=== PATIENT | female | born 1930 | race Caucasian/White ===

== ENCOUNTER 2016-11-26 21:50 | Inpatient (IN) | payer MEDICARE, BC ==
[2016-11-26] MEDS ORDERED: NITROGLYCERIN/D5W 50 MG/250 ML RTUINJ IV ONE (21:58)
--- NOTE | 2016-11-26 22:07 | ER Document Report ---
ED General - General Stated Complaint: TROUBLE BREATHING Notes: Patient is an 86-year-old female with past medical history of COPD, CHF, recent cardioversion of A. fib earlier today at [facility] who presents in severe respiratory distress. Apparently over the last 2 hours the patient began with increasingly worse dyspnea and was found to have a pulse ox of 70% upon EMS arrival. The patient is unable to provide any meaningful history at time of arrival secondary to her respiratory distress. TRAVEL OUTSIDE OF THE [place] IN LAST 30 DAYS: No - Related Data Allergies/Adverse Reactions: bupropion [From Wellbutrin] Allergy (Verified 11/26/16 23:08) codeine Allergy (Verified 11/26/16 23:08) Penicillins Allergy (Verified 11/26/16 23:08) Sulfa (Sulfonamide Antibiotics) Allergy (Verified 11/26/16 23:08) Past Medical History - General Information source: Emergency Med Personnel Cannot obtain history due to: Unstable vital signs - Social History Smoking Status: Never Smoker Frequency of alcohol use: None Drug Abuse: None Lives with: Spouse/Significant other Family History: Reviewed & Not Pertinent - Past Medical History Cardiac Medical History: Reports: Hx Congestive Heart Failure Pulmonary Medical History: Reports: Hx COPD Endocrine Medical History: Reports: Hx Diabetes Mellitus Type 2 Past Surgical History: Reports: Hx Cholecystectomy, Hx Hysterectomy, Hx Tonsillectomy Review of Systems - Review of Systems Notes: Constitutional: Negative for fever. HENT: Negative for sore throat. Eyes: Negative for visual changes. Cardiovascular: Negative for chest pain. Respiratory: Positive for shortness of breath. Gastrointestinal: Negative for abdominal pain, vomiting or diarrhea. Genitourinary: Negative for dysuria. Musculoskeletal: Negative for back pain. Skin: Negative for rash. Neurological: Negative for headaches, weakness or numbness. 10 point ROS negative except as marked above and in HPI. Physical Exam - Vital signs Vitals: Pulse Ox 90 L 11/26/16 21:54 Interpretation: Hypoxic, Tachypneic Notes: PHYSICAL EXAMINATION: GENERAL: Appears in moderate to severe respiratory distress. Ill in appearance. HEAD: Atraumatic, normocephalic. EYES: Pupils equal round and reactive to light, extraocular movements intact, sclera anicteric, conjunctiva are normal. ENT: nares patent, oropharynx clear without exudates. Moderately dry mucous membranes. NECK: Normal range of motion, supple without lymphadenopathy LUNGS: Diffuse rales in all lung rangel with diminished breath sounds bilaterally. HEART: Regular rate and rhythm 4/6 systolic ejection murmur ABDOMEN: Soft, nontender, normoactive bowel sounds. No guarding, no rebound. No masses appreciated. EXTREMITIES: 1+ pitting edema in the bilateral lower extremities is equal and symmetric. NEUROLOGICAL: No focal neurological deficits. Moves all extremities spontaneously and on command. PSYCH: Normal mood, normal affect. SKIN: Warm, Dry, normal turgor, no rashes or lesions noted. Course - Re-evaluation Re-evalutation: 11/26/16 22:03 Patient arrived in severe respiratory distress on BiPAP, symptoms consistent with flash pulmonary edema. Initial blood pressures were 203 systolic and 132 diastolic. Patient was immediately transitioned to BiPAP and titrated up to 80 % FiO2 to maintain saturations at 97-98%. An immediate bedside echocardiogram was performed given recent cardioversion today for A. fib and did not demonstrate any evidence of cardiac tamponade or Pericardial Effusion. Poor contractility throughout consistent with patient's history of chronic systolic failure. Likewise, patient did have a loud 4/6 systolic murmur which is apparently her baseline. Lung ultrasound showed diffuse pulmonary edema. Nitropaste had been applied by EMS and this was removed. I then administered 500 g push of nitroglycerin which took patient's blood pressure from 203 systolic to 155 systolic patient began to have a dramatic improvement of her symptoms. Lasix 40 mg Thursday been administered by EMS and patient only takes 20 mg oral daily no additional Lasix will be administered at this time. She will be continued on BiPAP. A stat portable chest x-ray, labs, and EKG will be obtained. Patient is critically ill this time and require frequent reassessments to evaluate for possible decompensation in the setting of her pulmonary cardiac history and severe rest or distress at time of arrival. 11/27/16 00:05 Patient has been able to be transitioned off the nitroglycerin drip and is now maintained her blood pressures into the 120s to 130s. She continues on BiPAP at 12 on 6 at 50% FiO2 maintaining oxygen saturations in the low 90s. Laboratories overall unremarkable, no troponin elevation although there is an elevation of pro BNP consistent with patient's presentation of flash pulmonary edema. Her venous gas is also consistent with a respiratory acidosis in the setting of CO2 retention when he to likely mixed picture of both pulmonary edema as well as a COPD exacerbation. Patient is also been given steroids and some nebulizers here although she does not have any significant wheezing on exam at this time. I discussed this patient with her hunting and fishing guide Dr. Wilcox who agrees the patient will require transfer to [facility]. They unfortunately do not have any ICU beds available at this time the patient will remain in the emergency department until the transfer can be completed tomorrow. I have ordered a prescription low dose of insulin for her mildly elevated glucose. I also ordered 2 g of magnesium be given over 20 minutes for possible COPD exacerbation in conjunction with her pulmonary edema. Accu-Cheks every 6 hours have been ordered. Will continue to reassess frequently over patient is no longer critically ill at this time 11/27/16 02:52 Patient has had a softening of her blood pressure despite discontinuation of nitroglycerin. Patient's current blood pressure is 162. A small fluid bolus has been administered as patient has not had urine output yet since she's been here in the emergency department. She was trialed off BiPAP for a short period of time but her dyspnea recurred and she has been restarted at this time. Will continue to reassess 11/27/16 03:42 After 250 mL bolus patient's blood pressure has normalized. She is resting quietly with even, unlabored breaths on BiPAP. Care transferred to - Vital Signs Vital signs: Temp Pulse Resp BP Pulse Ox 96 F L 22 H 97/51 L 97 11/26/16 22:08 11/27/16 02:30 11/27/16 02:30 11/27/16 02:30 - Laboratory Result Diagrams: 11/26/16 22:15 11/26/16 22:15 Laboratory results interpreted by me: 11/26/16 11/26/16 11/26/16 22:15 22:15 22:15 Hgb 11.7 L MCHC 31.4 L RDW 15.9 H Seg Neuts % (Manual) 89 H Lymphocytes % (Manual) 5 L Abs Neuts (Manual) 8.7 H VBG pH VBG pCO2 VBG HCO3 Carbon Dioxide 34 H Est GFR ( Amer) 50 L Est GFR (Non-Af Amer) 41 L Glucose 244 H POC Glucose Creatine Kinase 29 L NT-Pro-B Natriuret Pep 2010 H 11/26/16 11/27/16 11/27/16 22:55 00:26 00:27 Hgb MCHC RDW Seg Neuts % (Manual) Lymphocytes % (Manual) Abs Neuts (Manual) VBG pH 7.17 L* 7.22 L VBG pCO2 119.4 H* 92.1 H* VBG HCO3 42.6 H 36.5 H Carbon Dioxide Est GFR ( Amer) Est GFR (Non-Af Amer) Glucose POC Glucose 296 H Creatine Kinase NT-Pro-B Natriuret Pep - Diagnostic Test Radiology reviewed: Image reviewed, Reports reviewed Radiology results interpreted by me: 11/27/16 00:08 Chest x-ray: Ousmane and pulmonary edema - EKG Interpretation by Me Additional EKG results interpreted by me: 11/27/16 02:54 Normal sinus rhythm. Rate 76. No ST elevations or depressions. QTC 424. Critical Care Note - Critical Care Note Total time excluding time spent on procedures (mins): 55 Comments: Critical care time spent obtaining history from patient or surrogate, discussions with consultants, development of treatment plan with patient or surrogate, evaluation of patient's response to treatment, examination of patient , ordering and performing treatments and interventions, ordering and review of laboratory studies, re-evaluation of patient's condition, ordering and review of radiographic studies and review of old charts Discharge - Discharge Clinical Impression: Respiratory distress Condition: Fair Disposition: [facility]
[2016-11-26 22:34] LABS: HEMATOCRIT 37.2 % (36.0-47.0); HEMOGLOBIN 11.7 g/dL (12.0-15.5); HGB HCT DIFFERENCE -2.1; MEAN CORPUSCULAR HEMOGLOBIN 28.5 pg (27.0-33.4); MEAN CORPUSCULAR HGB CONC 31.4 g/dL (32.0-36.0); MEAN CORPUSCULAR VOLUME 91 fl (80-97); RED BLOOD COUNT 4.09 10^6/uL (3.72-5.28); RED CELL DISTRIBUTION WIDTH 15.9 % (11.5-14.0); WHITE BLOOD COUNT 9.8 10^3/uL (4.0-10.5)
[2016-11-26 22:39] LABS: PARTIAL THROMBOPLASTIN TIME 28.3 SEC (23.5-35.8); PROTHROMBIN TIME 14.6 SEC (11.4-15.4)
[2016-11-26 22:51] LABS: ALANINE AMINOTRANSFERASE 26 U/L (9-52); ALBUMIN 3.9 g/dL (3.5-5.0); ALKALINE PHOSPHATASE 39 U/L (38-126); ANION GAP 8 (5-19); ASPARTATE AMINO TRANSFERASE 24 U/L (14-36); BILIRUBIN,TOTAL 0.7 mg/dL (0.2-1.3); BLOOD UREA NITROGEN 20 mg/dL (7-20); CALCIUM 8.4 mg/dL (8.4-10.2); CARBON DIOXIDE 34 mmol/L (22-30); CHLORIDE 100 mmol/L (98-107); CREATINE KINASE 29 U/L (30-135); CREATININE RESULT 1.24 mg/dL (0.52-1.25); GLUCOSE 244 mg/dL (75-110); MAGNESIUM 1.7 mg/dL (1.6-2.3); POTASSIUM 4.3 mmol/L (3.6-5.0); SODIUM 141.9 mmol/L (137-145); TOTAL PROTEIN 6.4 g/dL (6.3-8.2)
[2016-11-26 22:53] LABS: BASOPHILS % (MANUAL) 0 % (0-2); EOSINOPHILS % (MANUAL) 1 % (0-6); LYMPHOCYTES % (MANUAL) 5 % (13-45); TOTAL CELLS COUNTED 100
[2016-11-26 22:54] LABS: ANISOCYTOSIS SLIGHT; TOXIC GRANULATION SLIGHT
[2016-11-26 23:03] LABS: CREATINE KINASE MB 0.74 ng/mL (<4.55); TROPONIN I 0.021 ng/mL
[2016-11-26 23:08] LABS: VENOUS BLOOD BASE EXCESS 10.2 mmol/L; VENOUS BLOOD HCO3 42.6 mmol/L (20-32)
[2016-11-26 23:10] LABS: VENOUS BLOOD PCO2 119.4 mmHg (35-63); VENOUS BLOOD PH 7.17 (7.30-7.42)
[2016-11-26] MEDS ORDERED: METHYLPREDNISOLONE INJ 125 MG/2 ML SDV IV ONE (23:12)
[2016-11-26] MEDS ORDERED: IPRATROPIUM/ALBUTEROL 0.5-2.5 MG/3 ML AMPUL NEB ONE ×2 (23:12→23:15)
[2016-11-26] MEDS ORDERED: METHYLPREDNISOLONE INJ 125 MG/2 ML SDV ONE (23:15)
[2016-11-27] MEDS ORDERED: INSULIN REG, HUMAN 100 UNIT/ML 3 ML VIAL (PYX) SUBCUT ONE ×2 (00:03→03:44)
[2016-11-27] MEDS: MAGNESIUM SULFATE/D5W 100 ML IV SCH ×2 (00:25→02:16)
[2016-11-27 00:35] LABS: VENOUS BLOOD BASE EXCESS 5.8 mmol/L; VENOUS BLOOD HCO3 36.5 mmol/L (20-32); VENOUS BLOOD PH 7.22 (7.30-7.42)
[2016-11-27 00:38] LABS: VENOUS BLOOD PCO2 92.1 mmHg (35-63)
--- NOTE | 2016-11-27 11:14 | EKG REPORT ---
SEVERITY:- ABNORMAL ECG - SINUS RHYTHM NONSPECIFIC INTRAVENTRICULAR CONDUCTION DELAY LEFT VENTRICULAR HYPERTROPHY : Confirmed by: Carlita Santiago 27-Nov-2016 11:12:57
[2016-11-27] MEDS ORDERED: IPRATROPIUM/ALBUTEROL 0.5-2.5 MG/3 ML AMPUL NEB ONE (12:15)
[2016-11-27] MEDS ORDERED: APIXABAN 2.5 MG TABLET PO ONE (12:15)
[2016-11-27] MEDS ORDERED: ACETAMINOPHEN 325 MG TABLET PO PRN (17:26)
[2016-11-27] MEDS ORDERED: ONDANSETRON HCL INJ/PF 4 MG/2 ML SDV IV PRN (17:26)
[2016-11-27] MEDS ORDERED: ONDANSETRON 4 MG TAB.RAPDIS PO PRN (17:26)
--- NOTE | 2016-11-27 17:26 | ER Document Report ---
Doctor's Note Notes: 11/27/16 17:27 The hospitalist from [place] called inquiring about the patient, after reviewing the visit from last night, the hospitalist asked if there was a reason the patient could not be admitted here and I could not disagree with her request. Dr. Anaya from the hospitalist service was consulted, and he came to see the patient and agreed that admission here would be the appropriate thing at this time.
[2016-11-27] MEDS ORDERED: DEXTROSE 50%-WATER 25 GM/50 ML DISP.SYRIN IV PRN ×2 (17:41)
[2016-11-27] MEDS ORDERED: LORAZEPAM INJ 2 MG/1 ML VIAL IV PRN (17:41)
[2016-11-27] MEDS ORDERED: GLUCAGON,HUMAN RECOMB 1 MG INJ IM PRN (17:41)
[2016-11-27] MEDS ORDERED: DEXTROSE 40% GEL 15 GM TUBE PO PRN ×2 (17:41)
[2016-11-27] MEDS ORDERED: INSULIN LISPRO 100 UNIT/ML 3 ML VIAL SUBCUT PRN (17:41)
[2016-11-27] MEDS ORDERED: FLUTICASONE/SALMETEROL DISKUS 250-50 MCG/DOSE IH SCH ×2 (17:45→22:00)
--- NOTE | 2016-11-27 17:58 | PDOC H&P ---
History of Present Illness Admission Date/PCP: 11/27/[address] Clement Villeda Patient complains of: Shortness of breath History of Present Illness: REYMUNDO BLAKE is a 86 year old female with a history of age fibrillation, coronary artery disease as well as congestive heart failure and COPD who presents to emergency room with shortness of breath. The patient yesterday was seen in [place] by her director risk and underwent cardioversion. Dr. Antonio is her director risk. I discussed the case with him and he reports that she was hypoxic at his office however she was not wearing her oxygen as she normally does. The patient went home and reports that her breathing was initially fine. The patient's breathing however did become worse and they got progressively worse and she eventually called the ambulance and was brought to the hospital. In route she was noted to have systolic blood pressures in the 200s. Patient was given nitroglycerin with decrease in her blood pressure. Patient also required BiPAP. The patient required BiPAP in the emergency room and they contacted the director risk in [place] who agreed to accept the patient in transfer. Unfortunately no beds were available and the patient could not be transferred. Because of that we have been contacted to admit this patient for further care. Patient reports that she has had wheezing and a nonproductive cough for the last several days also. She denies any fevers or chills. She has had orthopnea and PND but denies any lower extremity edema. She denies any chest pain associated with this. She denies any palpitations since being cardioverted. The patient is anticoagulated on Eliquis chronically. Patient clinically appears to have mostly COPD exacerbation with a component of congestive heart failure also. Past Medical History Cardiac Medical History: Reports: Atrial Fibrillation, Congestive Heart Failure , Coronary Artery Disease, Hyperlipidema, Hypertension, Peripheral Vascular Disease, Heart Murmur Pulmonary Medical History: Reports: Chronic Obstructive Pulmonary Disease (COPD) Endocrine Medical History: Reports: Diabetes Mellitus Type 2 Renal/ Medical History: Reports: None Malignancy Medical History: Reports: None GI Medical History: Reports: Gastroesophageal Reflux Disease Skin Medical History: Reports: None Psychiatric Medical History: Reports: Depression Infectious Medical History: Reports: None Past Surgical History Past Surgical History: Reports: Cholecystectomy, Hysterectomy, Tonsillectomy, Other - 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 Social History Information Source: Patient Lives with: Spouse/Significant other Smoking Status: Former Smoker Frequency of Alcohol Use: None Hx Recreational Drug Use: No Drugs: None Hx Prescription Drug Abuse: No - Advance Directive Resuscitation Status: Full Code Surrogate healthcare decision maker:: Her Family History Family History: Father at age 63 and had lung cancer. Mother at age 67 from ovarian cancer Parental Family History Reviewed: Yes Children Family History Reviewed: No Sibling(s) Family History Reviewed.: No Medication/Allergy Home Medications: Albuterol Sulfate [Albuterol Sulfate 2.5mg/3 mL] 1 vial IH Q4 PRN 11/27/16 Albuterol Sulfate [Proair HFA] 1 - 2 puff IH Q6 PRN 11/27/16 Amiodarone HCl [Amiodarone HCl 400 mg Tablet] 400 mg PO DAILY 11/27/16 Apixaban [Eliquis 2.5 mg Tablet] 2.5 mg PO DAILY 11/27/16 Ascorbic Acid [Vitamin C 500 mg Tablet] 500 mg PO DAILY 11/27/16 Aspirin [Aspirin 81 mg Chewable Tablet] 81 mg PO DAILY 11/27/16 Atorvastatin Calcium 40 mg PO DAILY 11/27/16 Bisoprolol Fumarate [Zebeta 5 mg Tablet] 1 tab PO DAILY 11/27/16 Brimonidine Tartrate [Alphagan P] 2 drop OP BID 11/27/16 Chondroitin Sulfate A Sodium [Chondroitin Sulfate] 150 gm MC DAILY 11/27/16 Escitalopram Oxalate 40 mg PO DAILY 11/27/16 Fluticasone/Salmeterol [Advair 250-50 Diskus 28 dose] 1 inh IH Q12H 11/27/16 Furosemide [Lasix] 20 mg PO DAILY 11/27/16 Gabapentin 100 mg PO DAILY 11/27/16 Indapamide [Indapamide] 2.5 mg PO DAILY 11/27/16 Insulin NPL/Insulin Lispro [Humalog Mix 75-25 100 unit/mL] 25 unit SUBCUT QAM Ipratropium [place] [Atrovent 0.06% Nasal Pax] 2 spray NASL BID 11/27/16 Isosorbide Mononitrate [Imdur 60 mg Tablet.er] 60 mg PO DAILY 11/27/16 Multivitamin/Iron/Folic Acid [Centrum Complete Multivit Tab] 1 each PO DAILY Pantoprazole Sodium 40 mg PO BID 11/27/16 Potassium Chloride 10 meq PO DAILY 11/27/16 Prednisone 10 mg PO DAILY 11/27/16 Ramipril [Altace 1.25 mg Capsule] 1.25 mg PO QHS 11/27/16 Terbinafine HCl 250 mg PO DAILY 11/27/16 Tiotropium [place] [Spiriva] 18 mcg IH DAILY 11/27/16 Travoprost (Benzalkonium) [Travatan 0.004% Eye Drop] 5 ml OP DAILY 11/27/16 Trazodone HCl 100 mg PO QHS 11/27/16 Allergies/Adverse Reactions: bupropion [From Wellbutrin] Allergy (Verified 11/26/16 23:08) codeine Allergy (Verified 11/26/16 23:08) Penicillins Allergy (Verified 11/26/16 23:08) Sulfa (Sulfonamide Antibiotics) Allergy (Verified 11/26/16 23:08) Review of Systems Constitutional: PRESENT: fatigue, weakness. ABSENT: chills, fever(s), headache( s), night sweats, weight gain, weight loss Eyes: ABSENT: visual disturbances Ears: ABSENT: hearing changes Nose, Mouth, and Throat: PRESENT: other - Left facial droop from parotid gland surgery Cardiovascular: PRESENT: dyspnea on exertion, orthropnea, palpitations. ABSENT : chest pain, edema Respiratory: PRESENT: cough, dyspnea. ABSENT: hemoptysis, sputum Gastrointestinal: ABSENT: abdominal pain, constipation, diarrhea, hematemesis, hematochezia, nausea, vomiting Genitourinary: ABSENT: dysuria, hematuria Musculoskeletal: ABSENT: joint swelling Integumentary: ABSENT: rash, wounds Neurological: ABSENT: abnormal gait, abnormal speech, confusion, dizziness, focal weakness, syncope Psychiatric: PRESENT: anxiety Endocrine: ABSENT: cold intolerance, heat intolerance, polydipsia, polyuria Hematologic/Lymphatic: ABSENT: easy bleeding, easy bruising Physical Exam Vital Signs: Temp Pulse Resp BP Pulse Ox 98 F 22 H 136/56 H 95 11/27/16 13:30 11/27/16 15:31 11/27/16 15:31 11/27/16 15:31 Intake & Output 11/26/16 11/27/16 11/28/16 06:59 06:59 06:59 Output Total 200 Balance -200 Weight 87.7 kg General appearance: PRESENT: mild distress Head exam: PRESENT: atraumatic, normocephalic Eye exam: PRESENT: conjunctiva pink, EOMI, PERRLA. ABSENT: scleral icterus Ear exam: PRESENT: normal external ear exam Mouth exam: PRESENT: moist, tongue midline Neck exam: ABSENT: carotid bruit, JVD, lymphadenopathy, thyromegaly Respiratory exam: PRESENT: wheezes - Patient has a few scattered expiratory wheezes. ABSENT: rales, rhonchi Cardiovascular exam: PRESENT: RRR, systolic murmur - 2/6 systolic murmur. ABSENT: diastolic murmur, rubs GI/Abdominal exam: PRESENT: normal bowel sounds, soft. ABSENT: distended, guarding, mass, organolmegaly, rebound, tenderness Rectal exam: PRESENT: deferred Extremities exam: ABSENT: calf tenderness, clubbing, pedal edema Neurological exam: PRESENT: alert, awake, oriented to person, oriented to place , oriented to time, oriented to situation, CN II-XII grossly intact. ABSENT: motor sensory deficit Psychiatric exam: PRESENT: anxious Skin exam: PRESENT: dry, intact, warm. ABSENT: cyanosis, rash Results Laboratory Results: 11/26/16 22:15 11/26/16 22:15 11/26/16 11/26/16 11/26/16 22:15 22:15 22:15 WBC 9.8 RBC 4.09 Hgb 11.7 L Hct 37.2 MCV 91 MCH 28.5 MCHC 31.4 L RDW 15.9 H Plt Count 241 Seg Neutrophils % Not Reportable Lymphocytes % Not Reportable Monocytes % Not Reportable Eosinophils % Not Reportable Basophils % Not Reportable Absolute Neutrophils Not Reportable Absolute Lymphocytes Not Reportable Absolute Monocytes Not Reportable Absolute Eosinophils Not Reportable Absolute Basophils Not Reportable VBG pH Cancelled VBG pCO2 Cancelled VBG HCO3 Cancelled VBG Base Excess Cancelled Sodium 141.9 Potassium 4.3 Chloride 100 Carbon Dioxide 34 H Anion Gap 8 BUN 20 Creatinine 1.24 Est GFR ( Amer) 50 L Est GFR (Non-Af Amer) 41 L Glucose 244 H Calcium 8.4 Magnesium 1.7 Total Bilirubin 0.7 AST 24 ALT 26 Alkaline Phosphatase 39 Total Protein 6.4 Albumin 3.9 11/26/16 11/27/16 22:55 00:27 WBC RBC Hgb Hct MCV MCH MCHC RDW Plt Count Seg Neutrophils % Lymphocytes % Monocytes % Eosinophils % Basophils % Absolute Neutrophils Absolute Lymphocytes Absolute Monocytes Absolute Eosinophils Absolute Basophils VBG pH 7.17 L* 7.22 L VBG pCO2 119.4 H* 92.1 H* VBG HCO3 42.6 H 36.5 H VBG Base Excess 10.2 5.8 Sodium Potassium Chloride Carbon Dioxide Anion Gap BUN Creatinine Est GFR ( Amer) Est GFR (Non-Af Amer) Glucose Calcium Magnesium Total Bilirubin AST ALT Alkaline Phosphatase Total Protein Albumin 11/26/16 11/26/16 22:15 22:15 Creatine Kinase 29 L CK-MB (CK-2) 0.74 Troponin I 0.021 NT-Pro-B Natriuret Pep 2010 H Impressions: Chest X-Ray 11/26/16 00:00 IMPRESSION: CARDIAC ENLARGEMENT. VASCULAR CONGESTION. BILATERAL PLEURAL EFFUSIONS WITH BASILAR ATELECTASIS. Assessment & Plan - Diagnosis (1) Respiratory distress Is this a current diagnosis for this admission?: YesPlan: Patient's respiratory distress is multifactorial including acute COPD exacerbation as well as acute on chronic congestive heart failure. (2) COPD with exacerbation Is this a current diagnosis for this admission?: YesPlan: Patient has restricted failure secondary to acute COPD exacerbation along with congestive heart failure most likely secondary to uncontrolled hypertension. We will give IV steroids, nebulizers as well as BiPAP as needed. (3) CHF (congestive heart failure) Is this a current diagnosis for this admission?: YesPlan: Patient's blood pressure was very elevated when she presented. She most likely has diastolic dysfunction. She is unaware of what her ejection fraction is. Her blood pressure is better controlled now and her congestive heart failure is improving. We'll give IV Lasix and monitor blood pressure closely. (4) Hypertension Is this a current diagnosis for this admission?: YesPlan: We'll give the IV Lasix. (5) Atrial fibrillation Is this a current diagnosis for this admission?: YesPlan: Patient had cardioversion yesterday done in [place]. She currently is in a sinus rhythm. She is anticoagulated on Eliquis and is on amiodarone for rate control. (6) Gastroesophageal reflux disease Is this a current diagnosis for this admission?: YesPlan: Asymptomatic (7) Diabetes mellitus Is this a current diagnosis for this admission?: YesPlan: We'll continue as scheduled 75/25 as well as sliding scale insulin. (8) Depression Is this a current diagnosis for this admission?: YesPlan: Patient has depression and anxiety. We'll give Ativan when necessary. (9) Hyperlipidemia Is this a current diagnosis for this admission?: Yes (10) Valvular heart disease Is this a current diagnosis for this admission?: YesPlan: Patient has a history of aortic stenosis, severe tricuspid regurgitation per her director risk Dr. Antonio (11) Peripheral vascular disease Is this a current diagnosis for this admission?: YesPlan: Patient has a history of having a right carotid endarterectomy in the past. (12) Coronary artery disease Is this a current diagnosis for this admission?: YesPlan: she reports that she had a stent placed greater than 20 years ago and had a history of an WA at that time. - Time Time Spent: 50 to 70 Minutes - Inpatient Certification Medical Necessity: Need Close Monitoring Due to Risk of Patient Decompensation - Plan Summary Plan Summary: We'll admit and give IV steroids for her COPD exacerbation as well as IV Lasix for her congestive heart failure exacerbation. This patient will require greater than 2 midnight hospital stay. The patient also requests to be a DO NOT RESUSCITATE.
[2016-11-27] MEDS ORDERED: IPRATROPIUM BROMIDE 0.06% NASAL SPRAY 15 ML NASL SCH (18:00)
[2016-11-27] MEDS ORDERED: INSULIN LISPRO SUBCUT SCH (18:00)
[2016-11-27] MEDS ORDERED: BRIMONIDINE TARTRATE OP SCH (18:00)
[2016-11-27] MEDS ORDERED: INSULIN LISPRO PROTAMINE SUBCUT SCH (18:00)
[2016-11-27] MEDS ORDERED: [UNRECOGNIZED DRUG - OTHER] SUBCUT SCH (18:00)
[2016-11-27 19:27] LABS: CREATINE KINASE MB 2.41 ng/mL (<4.55)
[2016-11-27 19:37] LABS: TROPONIN I 0.39 ng/mL
[2016-11-27] MEDS ORDERED: METHYLPREDNISOLONE INJ 40 MG/1 ML SDV IV SCH (22:00)
[2016-11-27] MEDS ORDERED: FUROSEMIDE INJ/PF 40 MG/4 ML SDV IV SCH (22:00)
[2016-11-27] MEDS ORDERED: RAMIPRIL 1.25 MG CAPSULE PO SCH (22:00)
[2016-11-27] MEDS ORDERED: TRAZODONE HCL 50 MG TABLET PO SCH (22:00)
[2016-11-27] MEDS ORDERED: LANSOPRAZOLE 30 MG TAB.RAP.DR PO SCH (22:00)
[2016-11-27] MEDS ORDERED: FAMOTIDINE 20 MG TABLET PO SCH (22:00)
[2016-11-27] MEDS: ALBUTEROL SULFATE 0.083% NEB 2.5 MG/3 ML AMPUL NEB PRN (22:41)
--- NOTE | 2016-11-27 22:44 | EKG REPORT ---
SEVERITY:- ABNORMAL ECG - SINUS RHYTHM NONSPECIFIC IVCD WITH LAD : Confirmed by: Madhavi Nieves MD 27-Nov-2016 22:43:18
[2016-11-27 22:57] VITALS: BP 123/44
--- NOTE | 2016-11-27 23:16 | PDOC TRANSFER SUMMARY ---
General Admission Date/PCP: 11/27/16 17:26 Accepting Facility: [facility] Resuscitation Status: Full Code - Transfer Diagnosis (1) Hypertensive emergency Is this a current diagnosis for this admission?: YesDiagnosis Summary: Patient presents the emergency room with severe shortness of breath and a systolic blood pressure of greater than 200 systolic the day after having cardioversion for atrial fibrillation. She receives BiPAP, IV nitroglycerin, IV Lasix and resumption of her home regiment with blood pressure control. Cardiac enzymes have trended upto o.3 without symptoms or EKG changes suggestive of troponin leak versus non-ST elevation DE. She is continued on Eliquis and aspirin and stable with a blood pressure of 123/44 pulse of 65 satting 98% on BiPAP. The patient has been accepted for transfer by Dr. Temple to [facility]. (2) CHF (congestive heart failure) Is this a current diagnosis for this admission?: YesDiagnosis Summary: Please see above (3) Coronary artery disease Is this a current diagnosis for this admission?: YesDiagnosis Summary: Please see above (4) Diabetes mellitus Is this a current diagnosis for this admission?: YesDiagnosis Summary: Home medication regiment with sliding scale insulin - Transfer Medications Home Medications: Albuterol Sulfate [Albuterol Sulfate 2.5mg/3 mL] 1 vial IH Q4 PRN 11/27/16 Albuterol Sulfate [Proair HFA] 1 - 2 puff IH Q6 PRN 11/27/16 Amiodarone HCl [Amiodarone HCl 400 mg Tablet] 400 mg PO DAILY 11/27/16 Apixaban [Eliquis 2.5 mg Tablet] 2.5 mg PO DAILY 11/27/16 Ascorbic Acid [Vitamin C 500 mg Tablet] 500 mg PO DAILY 11/27/16 Aspirin [Aspirin 81 mg Chewable Tablet] 81 mg PO DAILY 11/27/16 Atorvastatin Calcium 40 mg PO DAILY 11/27/16 Bisoprolol Fumarate [Zebeta 5 mg Tablet] 1 tab PO DAILY 11/27/16 Brimonidine Tartrate [Alphagan P] 2 drop OP BID 11/27/16 Chondroitin Sulfate A Sodium [Chondroitin Sulfate] 150 gm MC DAILY 11/27/16 Escitalopram Oxalate 40 mg PO DAILY 11/27/16 Fluticasone/Salmeterol [Advair 250-50 Diskus 28 dose] 1 inh IH Q12H 11/27/16 Furosemide [Lasix] 20 mg PO DAILY 11/27/16 Gabapentin 100 mg PO DAILY 11/27/16 Indapamide [Indapamide] 2.5 mg PO DAILY 11/27/16 Insulin NPL/Insulin Lispro [Humalog Mix 75-25 100 unit/mL] 25 unit SUBCUT QAM Ipratropium [place] [Atrovent 0.06% Nasal [place]] 2 spray NASL BID 11/27/16 Isosorbide Mononitrate [Imdur 60 mg Tablet.er] 60 mg PO DAILY 11/27/16 Multivitamin/Iron/Folic Acid [Centrum Complete Multivit Tab] 1 each PO DAILY Pantoprazole Sodium 40 mg PO BID 11/27/16 Potassium Chloride 10 meq PO DAILY 11/27/16 Prednisone 10 mg PO DAILY 11/27/16 Ramipril [Altace 1.25 mg Capsule] 1.25 mg PO QHS 11/27/16 Terbinafine HCl 250 mg PO DAILY 11/27/16 Tiotropium [place] [Spiriva] 18 mcg IH DAILY 11/27/16 Travoprost (Benzalkonium) [Travatan 0.004% Eye Drop] 5 ml OP DAILY 11/27/16 Trazodone HCl 100 mg PO QHS 11/27/16 Transfer Medications: Current Medications Acetaminophen (Tylenol 325 Mg Tablet) 650 mg PO Q4HP PRN PRN Reason: FOR PAIN OR TEMP Stop: 12/27/16 17:25 Albuterol (Ventolin 0.083% Neb 2.5 Mg/3 Ml Ampul) 2.5 mg NEB RTQ4HP PRN PRN Reason: FOR WHEEZING Stop: 12/27/16 17:25 Last Admin: 11/27/16 22:41 Dose: 2.5 mg Amiodarone HCl (Cordarone 200 Mg Tablet) 400 mg PO DAILY [place] Stop: 12/28/16 09:59 Apixaban (Eliquis 2.5 Mg Tablet) 2.5 mg PO DAILY [place] Stop: 12/28/16 09:59 Ascorbic Acid (Vitamin C 500 Mg Tablet) 500 mg PO DAILY [place] Stop: 12/28/16 09:59 Aspirin (Aspirin 81 Mg Chewable Tablet) 81 mg PO DAILY [place] Stop: 12/28/16 09:59 Atenolol (Tenormin 50 Mg Tablet) 50 mg PO DAILY [place] Stop: 12/28/16 09:59 Atorvastatin Calcium (Lipitor 40 Mg Tablet) 40 mg PO DAILY [place] Stop: 12/28/16 09:59 Dextrose (Dextrose Inj 50% Syringe (25 Gm/50 Ml)) 12.5 gm IV PRN PRN; Protocol PRN Reason: FOR BG 50-69 IN ALERT PATIENT Stop: 12/27/16 17:40 Dextrose (Dextrose Inj 50% Syringe (25 Gm/50 Ml)) 25 gm IV PRN PRN PRN Reason: Protocol Stop: 12/27/16 17:40 Escitalopram Oxalate (Lexapro 10 Mg Tablet) 40 mg PO DAILY [place] Stop: 12/28/16 09:59 Famotidine (Pepcid 20 Mg Tablet) 20 mg PO Q12 [place] Stop: 12/27/16 21:59 Furosemide (Lasix Inj/Pf 40 Mg/4 Ml Sdv) 40 mg IV Q12 [place] Stop: 12/27/16 21:59 Gabapentin (Neurontin 100 Mg Capsule) 100 mg PO DAILY [place] Stop: 12/28/16 09:59 Glucagon (Glucagen Inj 1 Mg Vial) 1 mg IM PRN PRN; Protocol PRN Reason: Evaluate for BG < 70 Stop: 12/27/16 17:40 Glucose (Glutose 40% Gel 15 Gm Tube) 15 gm PO PRN PRN; Protocol PRN Reason: FOR BG 50-69 IN ALERT PATIENT Stop: 12/27/16 17:40 Glucose (Glutose 40% Gel 15 Gm Tube) 30 gm PO PRN PRN; Protocol PRN Reason: FOR BG < 50 IN ALERT PATIENT Stop: 12/27/16 17:40 Insulin Human Lispro (Humalog Insulin 100 Unit/1 Ml 3 Ml Vial) 0 - 12 unit SUBCUT ACHSP PRN PRN Reason: Protocol Stop: 12/27/16 17:40 Ipratropium [place] (Atrovent 0.06% Nasal [place]) 2 spray NASL BID [facility] Stop: 12/27/16 17:59 Last Admin: 11/27/16 18:00 Dose: Not Given Isosorbide Mononitrate (Imdur 60 Mg Tablet.Er) 60 mg PO DAILY [place] Stop: 12/28/16 09:59 Lansoprazole (Prevacid 30 Mg Odt Tablet) 30 mg PO Q12 [place] Stop: 12/27/16 21:59 Lorazepam (Ativan Inj 2 Mg/1 Ml Vial) 0.5 mg IV Q8HP PRN PRN Reason: ANXIETY Stop: 12/04/16 17:40 Last Admin: 11/27/16 18:01 Dose: 0.5 mg Methylprednisolone Sodium Succinate (Solu-Medrol Inj/Pf 40 Mg/1 Ml Sdv) 40 mg IV Q8 [place] Stop: 12/27/16 21:59 Multivi/Iron Carb/Fe Sulf/FA/Prenat (-U Multiple Vitamin Capsule) 1 cap PO DAILY [place] Stop: 12/28/16 09:59 Ondansetron HCl (Zofran Odt 4 Mg Tablet) 4 mg PO Q4HP PRN PRN Reason: FOR NAUSEA/VOMITING Stop: 12/27/16 17:25 Ondansetron HCl (Zofran Inj/Pf 4 Mg/2 Ml Sdv) 4 mg IV Q8HP PRN PRN Reason: FOR NAUSEA/VOMITING Stop: 12/27/16 17:25 Patient Own Medication (Brimonidine Tartrate [Alphagan P]) 2 drop OP BID [place] Stop: 12/27/16 17:59 Patient Own Medication (Chondroitin Sulfate A Sodium [Chondroitin Sulfate]) 150 gm MC DAILY [place] Stop: 12/28/16 09:59 Patient Own Medication (Indapamide [Indapamide]) 2.5 mg PO DAILY [place] Stop: 12/28/16 09:59 Patient Own Medication (Insulin Npl/Insulin Lispro [Humalog Mix 75-25 100 Unit/ Ml]) 25 unit SUBCUT BID [place] Stop: 12/27/16 17:59 Patient Own Medication (Travoprost (Benzalkonium) [Travatan 0.004% Eye Drop]) 5 ml OP DAILY [place] Stop: 12/28/16 09:59 Potassium Chloride (Klor-Con 10 Meq Tablet.Sa) 10 meq PO DAILY [place] Stop: 12/28/16 09:59 Ramipril (Altace 1.25 Mg Capsule) 1.25 mg PO QHS [place] Stop: 12/27/16 21:59 Fluticasone/Salmeterol (Advair 250-50 Diskus 14 Dose/Diskus) 1 inh IH Q12 [place] Stop: 12/27/16 21:59 Terbinafine HCl (Lamisil 250 Mg Tablet) 250 mg PO DAILY [place] Stop: 12/05/16 09:59 Tiotropium [place] (Spiriva Handihaler 5 Cap/Kit (18 Mcg/Cap)) 1 cap IH DAILY [place] Stop: 12/28/16 09:59 Trazodone HCl (Desyrel 50 Mg Tablet) 100 mg PO QHS [place] Stop: 12/27/16 21:59 - Allergies Allergies/Adverse Reactions: bupropion [From Wellbutrin] Allergy (Verified 11/26/16 23:08) codeine Allergy (Verified 11/26/16 23:08) Penicillins Allergy (Verified 11/26/16 23:08) Sulfa (Sulfonamide Antibiotics) Allergy (Verified 11/26/16 23:08) Hospital Course Hospital Course: Patient presents the emergency room with severe shortness of breath and a systolic blood pressure of greater than 200 systolic the day after having cardioversion for atrial fibrillation. She receives BiPAP, IV nitroglycerin, IV Lasix and resumption of her home regiment with blood pressure control. Cardiac enzymes have trended upto o.3 without symptoms or EKG changes suggestive of troponin leak versus non-ST elevation DE. She is continued on Eliquis and aspirin and stable with a blood pressure of 123/44 pulse of 65 satting 98% on BiPAP. The patient has been accepted for transfer by Dr. Temple to [facility]. Physical Exam Vital Signs: Temp Pulse Resp BP Pulse Ox 97.8 F 67 23 H 123/44 L 98 11/27/16 22:53 11/27/16 22:53 11/27/16 22:53 11/27/16 22:53 11/27/16 22:53 Intake & Output 11/26/16 11/27/16 11/28/16 11:59 11:59 11:59 Weight 85.3 kg General appearance: PRESENT: no acute distress, well-developed, well-nourished Head exam: PRESENT: atraumatic, normocephalic Eye exam: PRESENT: conjunctiva pink, EOMI, PERRLA. ABSENT: scleral icterus Ear exam: PRESENT: normal external ear exam Mouth exam: PRESENT: moist, tongue midline Neck exam: ABSENT: carotid bruit, JVD, lymphadenopathy, thyromegaly Respiratory exam: PRESENT: crackles, prolonged expiratory phas, tachypnea, unlabored. ABSENT: rales, rhonchi, wheezes Cardiovascular exam: PRESENT: RRR. ABSENT: diastolic murmur, rubs, systolic murmur Pulses: PRESENT: normal dorsalis pedis pul GI/Abdominal exam: PRESENT: normal bowel sounds, soft. ABSENT: distended, guarding, mass, organolmegaly, rebound, tenderness Extremities exam: PRESENT: full ROM. ABSENT: calf tenderness, clubbing, pedal edema Neurological exam: PRESENT: alert, awake, oriented to person, oriented to place , oriented to time, oriented to situation, CN II-XII grossly intact. ABSENT: motor sensory deficit Psychiatric exam: PRESENT: appropriate affect, normal mood. ABSENT: homicidal ideation, suicidal ideation Skin exam: PRESENT: dry, intact, warm. ABSENT: cyanosis, rash Results Laboratory Results: 11/27/16 11/27/16 18:20 18:20 Creatine Kinase 48 CK-MB (CK-2) 2.41 Troponin I 0.390 Impressions: Chest X-Ray 11/26/16 00:00 IMPRESSION: CARDIAC ENLARGEMENT. VASCULAR CONGESTION. BILATERAL PLEURAL EFFUSIONS WITH BASILAR ATELECTASIS. Plan Discharge Plan: Patient has been accepted by Dr. Temple to [facility] pending bed availability and patient is currently stable for transfer Time Spent: Less than 30 Minutes
[2016-11-28 01:28] LABS: CREATINE KINASE MB 2.94 ng/mL (<4.55)
[2016-11-28 01:41] LABS: TROPONIN I 0.709 ng/mL
[2016-11-28] MEDS: ALBUTEROL SULFATE 0.083% NEB 2.5 MG/3 ML AMPUL NEB PRN (03:13)
[2016-11-28] MEDS ORDERED: ENOXAPARIN SODIUM INJ 40 MG/0.4 ML DISP.SYRIN SUBCUT SCH (08:00)
[2016-11-28] MEDS ORDERED: INDAPAMIDE 2.5 MG PO SCH (10:00)
[2016-11-28] MEDS ORDERED: TERBINAFINE HCL 250 MG TABLET PO SCH (10:00)
[2016-11-28] MEDS ORDERED: AMIODARONE HCL 200 MG TABLET PO SCH (10:00)
[2016-11-28] MEDS ORDERED: ATORVASTATIN CALCIUM 40 MG TABLET PO SCH (10:00)
[2016-11-28] MEDS ORDERED: ASPIRIN 81 MG TABLET, CHEWABLE PO SCH (10:00)
[2016-11-28] MEDS ORDERED: ISOSORBIDE MONONITRATE 60 MG TAB.ER.24H PO SCH (10:00)
[2016-11-28] MEDS ORDERED: TRAVOPROST OP SCH (10:00)
[2016-11-28] MEDS ORDERED: ATENOLOL 50 MG TABLET PO SCH (10:00)
[2016-11-28] MEDS ORDERED: APIXABAN 2.5 MG TABLET PO SCH (10:00)
[2016-11-28] MEDS ORDERED: CHONDROITIN SULFATE A SODIUM MC SCH (10:00)
[2016-11-28] MEDS ORDERED: GABAPENTIN 100 MG CAPSULE PO SCH (10:00)
[2016-11-28] MEDS ORDERED: ASCORBIC ACID 500 MG TABLET PO SCH (10:00)
[2016-11-28] MEDS ORDERED: ESCITALOPRAM OXALATE 10 MG TABLET PO SCH (10:00)
[2016-11-28] MEDS ORDERED: PRENATAL VITAMIN W-O CA NO5/FE FUMARATE/FA CAPSULE PO SCH (10:00)
[2016-11-28] MEDS ORDERED: POTASSIUM CHLORIDE 10 MEQ TABLET.SA PO SCH (10:00)
[2016-11-28] MEDS ORDERED: TIOTROPIUM BROMIDE DPI 5 CAP/KIT (18 MCG/CAP) IH SCH (10:00)
== END 2016-11-28 03:47 | disposition short-term general hospital (02) | DRG 304 ==
LOC: ER 21:50 → EH 11-27 17:26 → UNDOADMIN 11-27 18:25 → EH 11-27 18:25 → 3S 11-27 21:53
PROVIDERS: ADMIT Internal Medicine; ATTEND Internal Medicine
PROC: 5A09457 Assistance with Respiratory Ventilation, 24-96 Consecutive Hours, Continuous Positive Airway Pressure (ICD-10-PCS; principal; 2016-11-26)
PROC: 3E0F73Z Introduction of Anti-inflammatory into Respiratory Tract, Via Natural or Artificial Opening (ICD-10-PCS; 2016-11-27)
DX: I16.1 Hypertensive emergency (principal); I50.43 Acute on chronic combined systolic (congestive) and diastolic (congestive) heart failure; J44.1 Chronic obstructive pulmonary disease with (acute) exacerbation; I11.0 Hypertensive heart disease with heart failure; I25.10 Atherosclerotic heart disease of native coronary artery without angina pectoris; I48.91 Unspecified atrial fibrillation; E78.5 Hyperlipidemia, unspecified; R01.1 Cardiac murmur, unspecified; E11.51 Type 2 diabetes mellitus with diabetic peripheral angiopathy without gangrene; F32.9 Major depressive disorder, single episode, unspecified; F41.9 Anxiety disorder, unspecified; R29.810 Facial weakness; K21.9 Gastro-esophageal reflux disease without esophagitis; Z66 Do not resuscitate; Z79.899 Other long term (current) drug therapy; Z79.4 Long term (current) use of insulin; Z88.6 Allergy status to analgesic agent; Z88.0 Allergy status to penicillin; Z88.2 Allergy status to sulfonamides; Z88.8 Allergy status to other drugs, medicaments and biological substances; Z90.49 Acquired absence of other specified parts of digestive tract; Z90.710 Acquired absence of both cervix and uterus; Z87.891 Personal history of nicotine dependence; Z79.82 Long term (current) use of aspirin; Z79.52 Long term (current) use of systemic steroids; Z80.1 Family history of malignant neoplasm of trachea, bronchus and lung; Z80.41 Family history of malignant neoplasm of ovary
CPT/HCPCS: 36415; 51701; 71010; 80053; 82550; 82553; 82803; 82962; 83735; 83880; 84484; 85025; 85610; 85730; 93005; 93010; 94640; 94660; 96365; 96375; 99291; J1815; J1940; J2060; J2920; J2930; J3475; J3490; J7620